=== PATIENT | male | born 1965 | race Caucasian/White ===

== ENCOUNTER 2024-11-13 08:02 | Day surgery (SDC) | payer MEDICARE, MEDICAID, SELFPAY ==
--- OUTSIDE RECORDS SUMMARY | 2024-08-03 07:20 | XMS_ITS ---
Author Organization [facility] Address [address] [address] [place] [phone] Care Team Providers Care Fraud Prevention Analyst Name Role Phone Day ALLAN, Del Primary Care Provider Elkin Love Jr Unavailable Elkin Zarate Unavailable Unavailable REASON FOR VISIT Patient presents today for dyspepsia Encounters Encounter Location Date Provider Diagnosis [facility] [address] [address] [place] [phone] 08/03/2024 Elkin Zarate Jr Plan Of Treatment Next Appt Details Provider Name:Elkin hewitt Jr, 11/13/2024 10:00:00 AM, [address] [place] [address], [phone], Progress Notes * ALBINO HUERTAOB:1965 ( 59 yo M)Acc No.[id number]:08/03/2024 Progress Notes Patient: HEATHER ADORNO Provider: Ronald Zarate MD :1965 A ge:59 Y S ex:Male Date:08/03/2024 Address:[address] [place], [place] [phone] Pcp:Del Bernstein MD Subjective: * Chief Complaints: * 1 . Patient presents today for dyspepsia. * Medical History: Objective: * Vitals: Assessment: Plan: * Treatment: * * The named appointment provid er may or may not be the originator of this progress note, and it is not deemed complete until electronically signed by the appointment provider. Sign off status: Pending * Provider: Ronald Zarate MD Date: 0 08/03/2024 Generated for Kenia rivas/Leidy/Charisitting on: 0 11/04/2024 10:51 AM EDT
[2024-10-12 14:01] VITALS: BMI 36.0
--- OUTSIDE RECORDS SUMMARY | 2024-10-14 09:00 | XMS_ITS ---
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 Name Role Phone Day ALLAN, Del Primary Care Provider Elkin Love Jr Unavailable Elkin Zarate Unavailable Unavailable REASON FOR VISIT screening Encounters Encounter Location Date Provider Diagnosis [facility] Out[facility] [address] [place] [phone] 10/14/2024 Elkin Zarate Jr Plan Of Treatment Next Appt Details Provider Name:Elkin hewitt Jr, 11/13/2024 10:00:00 AM, [address] [place] [address], [phone], Progress Notes * ALBINO HUERTAOB:1965 ( 59 yo M)Acc No.[id number]:10/14/2024 COLON WITH MAC Patient: HEATHER ADORNO Provider: Ronald Zarate MD :1965 A ge:59 Y S ex:Male Date:10/14/2024 Address:[address] [place], [place] [phone] Pcp:Del Bernstein MD Subjective: * Chief Complaints: * 1 . Screening. * Medical History: Objective: * Vitals: Assessment: Plan: * Treatment: * * The named appointment provid er may or may not be the originator of this progress note, and it is not deemed complete until electronically signed by the appointment provider. Sign off status: Pending * Provider: Ronald Zarate MD Date: 0 10/14/2024 Generated for Kenia rivas/Leidy/Charisitting on: 0 11/04/2024 10:51 AM EDT
--- OUTSIDE RECORDS SUMMARY | 2024-11-04 10:52 | XMS_ITS | Clinical Summary ---
Author Organization [facility] Address [address] [place] [id number] Phone Care Team Providers Care Event Marketing Coordinator Name Role Phone Del Bernstein MD Primary Care Provider [phone] Rojas López MD Unavailable [phone] Allergies Active Allergy Reactions Criticality Noted Date Comments Metformin Diarrhea 07/30/2022 Morphine Itching Low 08/04/2015 Sulfa (Sulfonamide Antibiotics) Hives High 07/19 Medications aspirin 81 MG EC tablet Take 81 mg by mouth daily. Active MULTIVITAMIN ORAL Take by mouth. Active simethicone 125 mg CapIndications:A bdominal distention Take 1 capsule (125 mg total) by mouth 3 (three) times a day. 90 capsule 1 06/24/19 25 Active polyethylene glycol (MIRALAX) 17 gram/dose powderIndication s:Drug-induced constipation Take 10 g by mouth daily. 510 g 11 06/24/19 25 Active OZEMPIC 1 mg/dose (4 mg/3 mL) subcutaneous injection penIndications:T ype 2 diabetes mellitus without complication, without long-term current use of insulin INJECT 1 MG UNDER THE SKIN EVERY 7 DAYS 3 mL 3 08/04/19 25 Active JARDIANCE 25 mg tabletIndication s:Type 2 diabetes mellitus without complication, without long-term current use of insulin TAKE 1 TABLET(25 MG) BY MOUTH DAILY 30 tablet 11 09/03/19 25 Active oxyCODONE HCl 10 mg TabIndications:F franci back surgical syndrome Take 1 tablet (10 mg total) by mouth every 4 (four) hours as needed (max 5 a day). Partial fill ok m19.012 140 tablet 10/24/19 25 025 Active lisinopril (PRINIVIL,ZESTRI L) 10 MG tabletIndication s:Benign essential hypertension TAKE 1 TABLET(10 MG) BY MOUTH EVERY MORNING 90 tablet 3 11/03/19 25 Active lisinopril (PRINIVIL,ZESTRI L) 10 MG tabletIndication s:Benign essential hypertension Take 1 tablet (10 mg total) by mouth every morning. 90 tablet 3 12/23/19 24 025 Discontinued oxyCODONE HCl 10 mg TabIndications:F franci back surgical syndrome Take 1 tablet (10 mg total) by mouth every 4 (four) hours as needed (max 5 a day). Partial fill ok m19.012 140 tablet 09/26/19 25 025 Discontinued(Re order) Active Problems Problem Noted Date Diagnosed Date Right lower quadrant abdominal pain 10/31/2022 Assessment & Plan (10/31/2022 11:01 AM EDT): With multiple surgeries concern for development of abdominal hernia right lower quadrant, patient referred back to Dr. Allen who had performed previous hernia surgery. This will be over at [facility]. Routine general medical exam ination at a health care facility 07/30/2022 Assessment & Plan (03/26/2024 5:30 PM EST): Exam is difficult to say whether he is having right jaw pain secondary to a tooth abscess so we will obtain a CRP and if it is elevated I will start him on an antibiotic that he can tolerate. Otherwise we will follow-up on his diabetes and adjust the Ozempic if need be. Chronic pain management will obtain urine tox screen today continue oxycodone and continue to monitor. Blood pressures okay continue antihypertensive as such and will monitor electrolytes kidney function. Regarding the physical we will check a PSA. Assessment & Plan (07/30/2022 6:41 PM EDT): We will obtain a hemoglobin A1c regarding diabetes and check a lipid profile regarding dyslipidemia. I do not believe he is on statin therapy so we will see if that is necessary. His exam remarkable for the scar tissue and reduced range of motion in the shoulders. He is alert and oriented he does not appear overmedicated. 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 Blood pressure is elevated so will reassess in 3 months and consider increasing the lisinopril. If he can check his blood pressure at home that would be a benefit. We will check electrolytes kidney function PSA as part of the lab work to be done. Pain in joint of right shoulder 03/26/2022 Full thickness tear of right subscapularis tendo n 07/26/2021 Assessment & Plan (05/28/2022 2:36 PM EDT): This is a preop assessment for right revision reverse shoulder replacement. It is being performed in [place] on 31 May. [facility]. One of the concerns was an A1c of 10% back in March but the patient in the meantime was able to get the Trulicity approved and has been taking it regularly with blood sugars within or close to normal range. That would have been the only concern, his blood pressure was well within target range today and exam was unremarkable. In regards to pain management he can continue perioperatively with the oxycodone that he is using for his lower back pain chronic 10 mg 5 times a day though if his pain management is taken over by surgery and increased he will let us know. As such we could potentially raise his 10 mg dose to 15 if he needs it and I have made that offer to him. So with the stipulation about the pain management he is cleared to proceed to the surgery without any further cardiovascular testing. Assessment & Plan (03/26/2022 11:04 AM EST): This revision surgery right shoulder for which the patient is being assessed today for cardiovascular risk mitigation to the surgery, risk factors mitigated significantly, no need for further cardiovascular work-up prior to the surgery, patient can proceed to the surgery and may come off of the aspirin 7 days in advance to the surgery. Erectile dysfunction 01/23/2021 Assessment & Plan (04/25/2021 10:52 AM EST): Patient requesting 8 tablets/month, granted, patient okay for sexual intercourse. Continue aspirin for cardiovascular protection. 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 He is willing to give Viagra a chance and I told him that the Viagra is safe as long as you do not use it together with nitroglycerin which he does not have in his medicine cabinet nor on his med list. Take 1 hour before intended intercourse on an empty stomach. At risk for elopement from healthcare setting Assessment & Plan (12/16/2019 5:41 PM EDT): Patient left the examining room before we could examine him and performed the preop physical, he will reschedule for a new date. Enteritis 12/01/2019 Assessment & Plan (12/01/2019 10:32 AM EDT): Enteritis most likely through a rotavirus or adenovirus also making sore throat. Possible Covid though so we will obtain COVID-19 PCR testing. No need for ER, urgent care or RERE. A note to stay out of work given the contagious disease was written out to keep him until Saturday. No fat in food, no dairy over the next 5 days and bland foods such as bread, chicken noodle soup, Gatorade to help restore electrolytes and ease stomach. No antibiotics indicated. Opioid use 07/24/2019 Preop cardiovascular exam 03/30/2019 Assessment & Plan (07/26/2021 1:20 PM EDT): This patient is coming in for a preop evaluation regarding upcoming reverse shoulder procedure that is also a Workmen's Comp. case. It deals with an injury that happened during work hours specifically a fall. 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 We see that the patient's blood sugars are much better control under the Trulicity and from that standpoint he can proceed to the surgery. 's from the standpoint of hypertension and cardiovascular risk, he may come off of the aspirin 7 days prior to the procedure and may restart the aspirin shortly after the surgical procedure. His diabetes and hypertension are very well managed, also his diet has improved markedly. He remains a non-smoker, from this angle he can proceed also to the shoulder surgery scheduled. EKG came back with a normal sinus rhythm, in the past he has had ectopy so this was no new finding. We will obtain labs including a Chem-7 and a CBC for preop labs. I will see the patient back in 3 months with prior labs. No further cardiovascular testing necessary. Patient cleared for right-sided shoulder surgery. Assessment & Plan (07/27/2020 11:22 AM EDT): This visit was to determine whether the patient can proceed to the planned elective surgery to repair the subscapularis tendon August 29 over at [facility]. The patient is of moderate risk based on his hemoglobin A1c, obesity. He is compliant with medication but his diet could be improved. We feel that he can proceed to the surgery without any further cardiovascular testing. We note that the EKG came back within normal limits, we will do preop labs including an INR, Chem-7 and CBC. For better surgical healing and reduction in perioperative infections, the patient is advised to check his blood sugar 1 week before the surgery and 1 week after and tone down the amount of carbohydrates he is eating. Afterwards I am seeing the patient for a physical in September and we will repeat labs prior to that visit. Perioperative management of pain will be conducted through the surgeon and then we will take over when the surgeon feels that the pain management for the surgery is concluded. We note that the patient was recently started on Amaryl to bring his A1c down below 8% and he is tolerating that medication well without any low blood sugars. He is reminded to come off of all antidiabetics the day of surgery, not to take them, as he will be fasting then. So it is my determination that this patient is cleared for the upcoming shoulder surgery in conjunction with the above stated considerations. Assessment & Plan (06/27/2020 2:18 PM EDT): Exam positive for a few calluses on his lower extremities specifically his feet and otherwise obesity as before with central obesity noted and lot of pain with the shoulders with reduced range of motion. Other than that unremarkable exam. Blood pressure was good, we will see what the diabetes is doing and will make adjustments to antidiabetics especially since he will be having surgery coming up shortly for the subscapularis tendon that needs to be repaired right-sided, see above. I will also set up labs for 3 months from now. Assessment & Plan (03/30/2019 5:31 PM EST): Advised on the physical exam exercises mentioned above, dietary changes to get A1c improved. We will set up patient for physical therapy with shoulder pain. Colonoscopy is up-to-date, will perform diabetic foot exam at next visit in 3 months. Follow-up in 3 months. Mixed hyperlipidemia 03/30/2019 Assessment & Plan (06/06/2023 5:14 PM EDT): It is now time again to recheck lipids, check lipid profile and see if statin therapy is needed. Specially with history of diabetes there is a low threshold to start statin therapy. Assessment & Plan (12/18/2019 1:54 PM EDT): He has a strong HDL and LDL is okay though perhaps in the future we should consider a low-dose statin to get the LDL below 100. Assessment & Plan (07/28/2019 7:57 PM EDT): We should reassess the patient's lipid profile and ascertain if a statin therapy is necessary. Would like the LDL at least below 100 preferably below 75. Assessment & Plan (03/30/2019 5:30 PM EST): Check lipid profile today, if LDL triglycerides and HDL pathologic consider starting statin therapy. Intermittent chest pain 01/05/2019 Assessment & Plan (01/05/2019 3:36 PM EST): The patient does have risk factors for coronary artery disease including type 2 diabetes, hypertension and moderate cholesterol. He does have a little bit of ambiguous chest pain that is recurrent that he was complaining of today. Risk factors for CAD with recurrent chest pain should warrant at least a stress test. We will do an outpatient stress test at as he lives in [place] and based on results referral to cardiology. Type 2 diabetes mellitus wit hout complication, without long-term current use of insulin 09/23/2018 Assessment & Plan (06/23/2024 6:20 PM EDT): In order to allow the Ozempic to work will write some simethicone 3 times daily to reduce buildup of gas. Then also for constipation the polyethylene glycol will be prescribed 10 g daily. That will help keep from constipation. Assessment & Plan (12/10/2023 10:17 AM EDT): Check hemoglobin A1c and see if an adjustment on the Ozempic is needed. Assessment & Plan (09/09/2023 2:59 PM EDT): Keep ozempic at 1 mg per week and obtain microalb in urine now and hemogloboin A1c in three months, continue at 1 mg Assessment & Plan (06/06/2023 5:16 PM EDT): The patient will remain on the Trulicity 0.75 mg/week. Lets obtain a hemoglobin A1c and try to increase the Trulicity back up to 3 mg weekly based on the lab work particularly the hemoglobin A1c. Assessment & Plan (01/28/2023 1:03 PM EST): Our goal is to get him down into the 7% bracket and maintain for a year. Ideally down into the 6% range. Will continue Jardiance and Trulicity for now, blood pressure well-controlled with the antihypertensive as written. Patient will continue to monitor his diet for starches and sugar. Assessment & Plan (10/31/2022 10:59 AM EDT): Patient is now back on Jardiance and Trulicity so we will see if he comes back down in the 6% range as he was successfully on these meds before. The Trulicity had been in short supply for a while. He denies any polyuria or polydipsia so A1c could very well come back in target range. Assessment & Plan (03/26/2022 11:03 AM EST): We are expecting the A1c to be a little bit elevated even severely elevated but as long as the blood sugar today on the Chem-7 is below 250 would not hold back from surgery but might advise to have the patient log blood sugars more frequently. Reason that the A1c would be more elevated is that he was off of the Trulicity and Jardiance since being let go from his job in November. He is now on [facility] and back on the Trulicity and Jardiance. Assessment & Plan (04/25/2021 10:51 AM EST): Over the past couple of years despite the Trulicity still A1c persisting in 8% range. 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 Therefore I would hold off on any changes. Could consider adding on some Actos but would hold off to see the results. Follow-up in 3 months. Assessment & Plan (01/23/2021 11:29 AM EST): It is too early to tell whether the diabetes will be controlled by the add-on of Trulicity and so we are in the face of trying to ramp up the Trulicity. Initially 0.75 mg cause nausea but is tolerating well now. Will call in another month's prescription at 0.75 but actually he will take 2 injections at once so it will be 1.5 mg weekly and then if no nausea we can write a new prescription at that dosing. Eventually we could go up to 3 mg or 4.5 mg which is the maximal dose but we have several months/half year to figure it out. I would like to see him back in 3 months at which time we might do a urine tox screen for example, we will obtain labs in advance prior to the visit. He will continue with the other medicines. We would like him to check his blood sugar if he felt he was hypoglycemic. That would be important to know. Assessment & Plan (10/25/2020 9:47 AM EDT): A1c's have been in the 8% range on Jardiance full-strength and Amaryl 1 mg as well as Metformin. We would like to see if we can get his A1c down to below 8% so I am considering adding on something like Trulicity or Ozempic to his regimen. I would probably do so in January the give him another 3 months to work on his diet. Any anyhow we will set him up today for lab. Check A1c. Also check microalbumin as part of the protocol. Another part of the protocol would be checking lipids that had not been done this year patient is not on a statin and with the Jardiance might really need to be taking something. So based on the lipid profile consider adding on a statin and will have a discussion with him first if that is the case. Assessment & Plan (06/27/2020 2:11 PM EDT): We will obtain a hemoglobin A1c now and in 3 months. Because his A1c was 8% range she really should have been seen 3 months ago. So we will just assume that the A1c is in the 8% range but even if it is 7% he should keep that appointment as we will follow him a little bit more closely as discussed him. Counseled the patient on diabetic diet, elements of diabetic diet, we talked about Metamucil. Sugar-free Metamucil. Assessment & Plan (12/18/2019 1:55 PM EDT): Continue Metformin and Jardiance, if the A1c is still around 8% we will add on short-term sulfonylurea to be used perioperatively but of course not on the day of surgery. On the day of surgery the patient will be off of the Jardiance, Metformin, oxycodone and lisinopril. Assessment & Plan (12/01/2019 10:33 AM EDT): The patient has having a little bit of unsettled stomach with the Jardiance and its been about 5 months. We will continue for now, consider going back to Invokana with prior authorization. Patient tolerated the Invokana much better. Assessment & Plan (07/28/2019 8:01 PM EDT): Obtain hemoglobin A1c, continue invoke a met and see if further management necessary of diabetes. Currently no overt signs of hypoglycemia. Assessment & Plan (03/30/2019 5:27 PM EST): His A1c back in December was 7.7% and so we should recheck it today and hopefully we are below 7%. Encouraged the patient to a diet low in carbohydrates specifically sugar and starch and increased fiber with vegetables specifically and then to a lesser extent fruits. Avoidance of highly processed starches such as Romanian fries or spaghetti. Minimal amounts. Daily exercise recommended. 30 minutes of moderate maintenance. Assessment & Plan (01/05/2019 3:11 PM EST): Reassess diabetes today check A1c if A1c is elevated consider increasing the Invokana with metformin. Patient counseled to keep watching blood sugars 2-3 times per week 2 hours postprandial biggest meal the day. Counseled patient on diabetic diet and exercise. Assessment & Plan (09/23/2018 5:31 PM EDT): Diabetes was at the other clinic and found to be stable, no need to switch current management, check A1c in 3 months, diabetic diet reinforced with patient. Benign essential hypertension 09/23/2018 Assessment & Plan (06/23/2024 6:19 PM EDT): Blood pressure well-controlled continue the antihypertensives as such. Assessment & Plan (12/10/2023 10:17 AM EDT): Hypertension well controlled with current listed antihypertensives. Denies side effects No change to dosing. Low Sodium diet reinforced. Continue to monitor condition. Assessment & Plan (09/09/2023 2:57 PM EDT): Hypertension well controlled with current listed antihypertensives. Denies side effects No change to dosing. Low Sodium diet reinforced. Continue to monitor condition. Assessment & Plan (06/06/2023 5:13 PM EDT): Hypertension well controlled with current listed antihypertensives. Denies side effects No change to dosing. Low Sodium diet reinforced. Continue to monitor condition. Assessment & Plan (10/31/2022 11:00 AM EDT): Blood pressure in target range continue low-dose antihypertensive as is. Jardiance is also helping out with blood pressure. Low-sodium diet reinforced. Assessment & Plan (03/26/2022 11:02 AM EST): Hypertension well controlled with current listed antihypertensives. Denies side effects No change to dosing. Low Sodium diet reinforced. Continue to monitor condition. Assessment & Plan (04/25/2021 10:49 AM EST): Hypertension well controlled with current listed antihypertensives. Denies side effects No change to dosing. Low Sodium diet reinforced. Continue to monitor condition. Assess Chem-7. Assessment & Plan (01/23/2021 11:27 AM EST): Hypertension well controlled with current listed antihypertensives. Denies side effects No change to dosing. Low Sodium diet reinforced. Continue to monitor condition. Assessment & Plan (10/25/2020 9:45 AM EDT): Blood pressure well controlled with the low-dose lisinopril. Recheck electrolytes kidney function. Low-sodium diet reinforced, we would like the patient to go back on aspirin 81 mg for cardiovascular protection. Patient confirmed and we can reconfirm in January make sure that he is taking. Assessment & Plan (06/27/2020 2:10 PM EDT): Hypertension well controlled with current listed antihypertensives. Denies side effects No change to dosing. Low Sodium diet reinforced. Continue to monitor condition. Assessment & Plan (12/18/2019 1:55 PM EDT): Hypertension well controlled with current listed antihypertensives. Denies side effects No change to dosing. Low Sodium diet reinforced. Continue to monitor condition. Assessment & Plan (12/01/2019 10:33 AM EDT): For now continue the lisinopril and we will reassess on physical exam sometime in December. Assessment & Plan (03/30/2019 5:26 PM EST): Blood pressures were good back in December and September so we will continue to follow blood pressure and only modify antihypertensive if persisting blood pressure. We encouraged him to check at home. Continue lisinopril at 10 mg and we do note that the Invokana doubles up to help with blood pressure maintenance. Check electrolytes kidney function in the context of this physical exam and benign essential hypertension. Assessment & Plan (01/05/2019 3:08 PM EST): Hypertension well controlled with current listed antihypertensives. Denies side effects No change to dosing. Low Sodium diet reinforced. Continue to monitor condition. Obtain electrolytes kidney function with particular attention to potassium. Assessment & Plan (09/23/2018 5:32 PM EDT): Blood pressure well controlled, lisinopril more about controlling protein in urine, continue to monitor blood pressure, low-sodium diet reinforced albumin in 3 to 6 months. Mid back pain 09/23/2018 Assessment & Plan (12/10/2023 10:19 AM EDT): Mid back pain just right of T5-T6, obtain for the first step x-ray of the thoracic spine. We are looking for old compression fractures, dislocations. Assessment & Plan (01/23/2021 11:31 AM EST): We can continue the current management of opioids for the patient's back pain and shoulder pain. Urine tox screens as previously arranged, random application. 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 We can continue the oxycodone but I admonished the patient that I need to see him every 3 months and that we need to do urine tox screen which we will do today. He had no problems with the rules so we will follow-up with him in 3 months here. Assessment & Plan (07/27/2020 11:17 AM EDT): The patient is on the oxycodone for the failed back syndrome and there is a question of pain management perioperatively. I told the patient we would manage the patient preoperatively but after the surgery for a time that the surgeon felt was adequate the orthopedic surgeon will take over the pain management for perioperative shoulder pain and then will take over when the time is right according to the surgeon. Patient agreement with plan. Assessment & Plan (09/23/2018 5:34 PM EDT): Back surgery with Dr. Guillaume 2009, moderate success with right-sided sciatica, pain still persisting along with chronic shoulder pain secondary to degenerative joint disease. Over contract with the patient, contract signed. Right sided sciatica 09/23/2018 Assessment & Plan (06/06/2023 5:15 PM EDT): Right now it is more left iliopsoas versus SI joint versus lumbosacral pathology that is causing the pain in his left posterior hip. Will give this a couple more weeks before approaching it with some more imaging. If the SI joint is involved we can refer the patient to physiatry. Assessment & Plan (10/31/2022 11:00 AM EDT): Right-sided sciatica right shoulder and knee and and ankle pain for which the patient continues on the oxycodone, will continue to work with the patient, urine tox screen ordered, hold off anti-inflammatories. Assessment & Plan (06/27/2020 2:13 PM EDT): We will continue his chronic pain management up until his upcoming surgery. He has a right sub-scapular tendon repair planned. But it has to go through Workmen's Comp. approval. I will be Dr. Lane of [facility] who had performed the previous shoulder. He is okay to use the opiates that we prescribed up until the surgery then perioperatively the orthopedist will take over until its okay to return to the regular regimen that he is on. We need to follow him every 3 months for controlled substances so I will see him back in September irrespective of any preop consult that is done for this upcoming surgery. Assessment & Plan (07/28/2019 7:57 PM EDT): This patient was previously treated by Dr. Petty, [facility], for failed back syndrome with right-sided sciatica. He continues to have a lot of right posterior hip pain that appears to be associated with his degenerative disc disease. We are treating the patient with oxycodone for his pain 10 mg 5 times or perhaps 6 times a day. 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 Degenerative disc disease with acute on chronic pain, referral back to Dr. Guillaume of [facility] to investigate exacerbation of right-sided sciatica. Continue oxycodone at current dosing. Assessment & Plan (01/05/2019 3:31 PM EST): Right-sided sciatica has not changed in character, the pain is held in check with the oxycodone currently at 20 mg to 1/2 tablets daily to make 50 mg daily. Patient would like to go back to the 10 mg tablets as this was not neither his idea nor mine to switch to 20 mg. When the medicine is due he will call it in and we will call in 5 tablets/day 150, Degenerative joint disease 09/16/2018 Assessment & Plan (06/23/2024 6:21 PM EDT): Degenerative joint disease and degenerative disc disease lumbar spine, particularly the shoulders and the lumbar spine with a lot of pain, patient requiring oxycodone 10 mg every 4 hours, will continue to prescribe, pain contract signed. Assessment & Plan (12/10/2023 10:18 AM EDT): Degenerative joint disease and lower back pain managing also with the oxycodone for which we will do a urine tox screen today. Will continue the oxycodone, [facility]. Assessment & Plan (01/28/2023 1:04 PM EST): Regarding chronic pain syndrome will continue to monitor urine tox screens twice a year and we will maintain on the 10 mg of oxycodone. Assessment & Plan (03/30/2019 5:30 PM EST): Referral to physical therapy for exercises, continue chronic pain management with opioids as such. Degenerative joint disease of left shoulder 08/20 Assessment & Plan (09/09/2023 3:00 PM EDT): Ongoing shoulder pain with back pain as well, continue current management. Assessment & Plan (06/06/2023 5:14 PM EDT): With either shoulder I counseled the patient to set up an appointment with [facility] before Dr. López might retire. Assessment & Plan (04/25/2021 10:52 AM EST): Lower backThe patient on pain medicine for back and shoulder pain. Continue current management with the oxycodone, obtain urine tox screen and follow-up in 3 months. Assessment & Plan (12/18/2019 1:53 PM EDT): The patient presents for preop risk assessment for a moderate risk procedure. He himself has a stable exam with normal sinus rhythm EKG no ischemic ectopy and no prior history of coronary artery disease. We think he is a good candidate for the upcoming surgery and therefore we recommend that the surgery be conducted without any prior cardiovascular testing. In July his hemoglobin A1c was in the 8% range but he has lost a little bit of weight and has worked on his diet habits. He has been compliant with the medications. I told the patient is healing process would be better if his blood sugars are under good control. As long as his blood sugars are not on average above 250 though he should be okay for the surgery. We will obtain a hemoglobin A1c along with a CBC Chem-7 AST ALT and urinalysis as well as a PT/INR for the upcoming surgery as prerequisites. Patient currently not taking an aspirin a day and does not need to do so. We will fax those results to the surgeon. I wrote a letter the patient's employer keeping him out 8 weeks after the surgery well into February. He can use this time for physical therapy and recovery. In regards to the pain management we were writing the oxycodone for his back and shoulder pain, with the surgery he will have perioperative pain management through the orthopedist however we would be inclined to take over pain management, once the surgeon felt that the postsurgical pain was under good control. We would like that communicated however to the office and also the patient has promised not to take the oxycodone that I am prescribing at the same time as the pain management from the surgeon. Class 3 severe obesity due t o excess calories with serious comorbidity and body mass index (BMI) of 40.0 to 44.9 in adult Assessment & Plan (06/23/2024 6:19 PM EDT): Once at higher doses of the Ozempic together with Jardiance we can perhaps get the A1c below 8% perhaps even below 7%. Then we can also see improve weight loss. Assessment & Plan (12/10/2023 10:18 AM EDT): About 6 pounds of weight gain within the last 4 months, consider increasing Ozempic for both diabetes and weight gain. Assessment & Plan (09/09/2023 2:57 PM EDT): counseled the pt on eating a low calorie diet to reduce excess weight. We talked about calorie restriction, weight watchers and exercise as possible to help move weight in the right direction. Assessment & Plan (04/25/2021 10:50 AM EST): Trulicity perhaps enabling weight loss resulting in the 10 pound weight loss, check A1c. Continue Trulicity at current dosing. Assessment & Plan (06/27/2020 2:12 PM EDT): counseled the pt on eating a low calorie diet to reduce excess weight. We talked about calorie restriction, weight watchers and exercise as possible to help move weight in the right direction. Assessment & Plan (12/18/2019 1:54 PM EDT): counseled the pt on eating a low calorie diet to reduce excess weight. We talked about calorie restriction, weight watchers and exercise as possible to help move weight in the right direction. Assessment & Plan (03/30/2019 5:29 PM EST): counseled the pt on eating a low calorie diet to reduce excess weight. We talked about calorie restriction, weight watchers and exercise as possible to help move weight in the right direction. Assessment & Plan (09/23/2018 5:33 PM EDT): Discussion about compression of the discs secondary to weight, disc decompression with weight loss feasible, counseled patient on portion control. Encounters Date Type Department Care Team Description 10/31/2024 Refill [facility] Internal [facility] [address] [facility] [place] [place] [address] Del Bernstein MD Medication Refill 10/16/2024 Refill [facility] [address] [facility] [place] [address] Del Bernstein MD Medication Refill (CSRP) 09/18/2024 Refill [facility] [address] [place] [address] Del Bernstein MD Medication Refill (CSRP Oxycodone ) 09/01/2024 Refill [facility] [address] [facility] [place] [address] Del Bernstein MD Medication Refill 08/20/2024 Refill [facility] [address] [place] [address] Del Bernstein MD Medication Refill (CSRP) 08/05/2024 Telephone [facility] [address] [facility] [place] [address] Katelynn Avelar, DANIEL Results from Last 3 Months Immunizations Immunization Administration Dates Next Due Influenza Quadrivalent Preservative Free IM 11/20 Pneumococcal polysaccharide PPSV23 01/05/2019 Tdap 01/17/2018 Family History Medical History Relation Comments COPD Mother Diabetes Mother Emphysema Mother Lung cancer Unspecified Cervical cancer Neg Hx Relation Status Comments Father Mother Unspecified Social History Tobacco Use Types Packs/Day Years Used Date Smoking Tobacco: Never Passive Smoke Exposure: Current Smokeless Tobacco: Current Chew Tobacco Cessation:Ready to Q uit: Not Asked; Counseling Given: Not Answered Alcohol Use Standard Drinks/Week Comments Not Currently 0 (1 standard drink = 0.6 oz pur e alcohol) rarely Child or Family Care Answer Date Record ed Do you have problems with on e of the following making it difficult for you to work, study, or receive health care? I choose not to answer 03/26/2024 Education Answer Date Recorded Are you interested in help w ith more adult education (for example, completing high school, GED, job training, learning the [place]ij[place] language, technical skills, or developing parenting skills)? I choose not to answer 03/26/2024 Are you concerned about learning? Not on file 03/26/2024 No 03/26/2024 Yes 03/26/2024 Food Answer Date Recorded Within the past 6 months we worried whether our food would run out before we got money to buy more. I choose not to answer 03/26/2024 Within the past 6 months the food we bought just didn't last and we didn't have enough money to get more. I choose not to answer 03/26/2024 Residential Stability Answer Date Recor ded What is your housing situation today? I choose n ot to answer 03/26/2024 How many times have you move d in the past 12 months? Zero (I did not move) 03/26/2024 Paying for Meds Answer Date Recorded Do you have trouble paying for medicines? I tarah se not to answer 03/26/2024 Paying Utility Bills Answer Date Record ed Do you have trouble paying y our heating or electricity bill? I choose not to answer 03/26/2024 Transportation Answer Date Recorded Has the lack of transportati on kept you from medical appointments or from getting medications? I choose not to answer 03/26/2024 Unemployment Answer Date Recorded Are you currently unemployed or working on a part-time or temporary basis, and looking for work? I choose not to answer 03/26/2022 Digital Access Answer Date Recorded No 03/26/2024 No 03/26/2024 Do you have reliable internet access at home? I choose not to answer 03/26/2024 Do you have a device (e.g., phone, tablet, computer) with a working camera? I choose not to answer 03/26/2024 SNAP & WIC Answer Date Recorded Do you receive benefits from SNAP (the Supplemental Nutrition Assistance Program) or the Food Stamp Program? No 07/30/2022 SNAP is a free program that can help you and your family get access to healthy foods, nutrition classes, utility discounts, and more. Would you be interested in learning more? No 07/30/2022 Can we help you enroll in SNAP? Not on file 07/30/2022 Benefits received from WIC? Not on file 07/19 WIC is a free program, interested in learning mo re? Not on file 07/30/2022 Can we help you enroll in WIC? Not on file 0 07/30/2022 Intimate Partner Violence Answer Date R ecorded Denied Basic Needs Not on file 03/26/2024 In the past 12 months have y ou been in a relationship with a person who hurts, threatens, or tries to control you? Deferred 03/26/2024 Worried food would run out Not on file 03/26 In the past 12 months have y ou been in a relationship with a person who hurts, threatens, or tries to control you? Deferred 03/26/2024 Sex and Gender Information Value Date Recorded Sex Assigned at Male 07/26/2021 10:19 AM EDT Legal Sex Male 8:51 AM EDT Gender Identity Male 07/26/2021 10:19 AM EDT Sexual Orientation Straight 07/26/2021 10 :19 AM EDT Last Filed Vital Signs Vital Sign Reading Time Taken Comments Blood Pressure 116/64 06/23/2024 11:18 AM EDT Pulse 93 06/23/2024 11:18 AM EDT Temperature 36.3 C (97.3 F) 06/23/2024 11:18 AM EDT Respiratory Rate 18 06/23/2024 11:1 8 AM EDT Oxygen Saturation 94% 06/23/2024 11: 18 AM EDT Inhaled Oxygen Concentration - - Weight 123.9 kg (273 lb 3.2 oz) 025 11:18 AM EDT Height 172.7 cm (5' 7.99 ) 06/23/2024 1 1:18 AM EDT Body Mass Index 41.55 06/23/2024 11:18 AM EDT Plan of Treatment Upcoming Encounters Date Type Department Care Team (Late st Contact Info) Description 11/10/2024 10:45 AM EDT Office Visit [facility] Internal Medicine [address] [place] [address] Del Bernstein MD [address] [place] [address] [email or web address] Health Maintenance Due Date Last Done Comments COLOGUARD 2010 COLONOSCOPY 2010 COLORECTAL CANCER SCREENING 2010 FIT TEST 2010 FOBT 2010 SIGMOIDOSCOPY 2010 VIRTUAL COLONOSCOPY 2010 ZOSTER VACCINES (1 of 2) 2015 PNEUMOCOCCAL VACCINES (50+ years) (2 of 2 - PCV) 01/06/2020 01/05/2019 DIABETIC EYE EXAM 02/20/2020 02/19/2019 INFLUENZA VACCINE (#1) 2024 12/18/2019 COVID-19 VACCINE (1 - season) 2024 HEMOGLOBIN A1C 10/24/2024 07/24/2024, 03/22, 12/10/2023, Additional history exists BLOOD PRESSURE 12/24/2024 06/23/2024 DEPRESSION SCREENING 03/26/2025 03/26/2024, 09/09/19 24 CREATININE LEVEL 04/09/2025 04/09/2024, 11/2023, 10/31/2022, Additional history exists POTASSIUM LEVEL 04/09/2025 04/09/2024, 06/18, 10/31/2022, Additional history exists LIPID PANEL 07/24/2025 07/24/2024, 06/18, 07/30/2022, Additional history exists Adult Td,Tdap Booster 01/18/2028 01/17/2018 HEPATITIS C SCREENING Completed 01/27/2019 HIV ONE-TIME SCREENING (18-65 YEARS) Completed 01/27/2019 SMOKING STATUS SCREENING (Once After 26 Yrs) Completed 06/23/2024 HEPATITIS A VACCINES Aged Out No long er eligible based on patient's age to complete this topic HIB VACCINES Aged Out No longer eligi ble based on patient's age to complete this topic MENINGOCOCCAL VACCINES (ACWY) Aged Out No longer eligible based on patient's age to complete this topic MENINGOCOCCAL VACCINES (B) Aged Out N o longer eligible based on patient's age to complete this topic Medical Devices Not on file Procedures Procedure Name Priority Date/Time Associated Diagnosis Comments HEMOGLOBIN A1C Routine 07/24/2024 12:00 PM EDT Type 2 diabetes mellitus without complication, without long-term current use of insulin LIPID PANEL Routine 07/24/2024 12:00 PM EDT Type 2 diabetes mellitus without complication, without long-term current use of insulin BASIC METABOLIC PANEL Routine 04/09/2024 3:56 PM EST Benign essential hypertension HM DIABETES EYE EXAM FOR RESULT ENTRY ONLY Routine 02/19/2019 OUTSIDE HIV Routine 01/27/2019 OUTSIDE HEPATITIS C VIRUS SCREENING Routine 01/27/2019 from Last 3 Months or Most Recently Relevant to Health Maintenance Results * (ABNORMAL) Hemoglobin A1c (07/24/2024 12:00 PM EDT) HEMOGLOBIN A1C 9.9(H) 4.3 - 5.8 % [facility] Blood 07/24/2024 12:0 0 PM EDT 07/24/2024 12:04 PM EDT us Del Bernstein MD LAB BLOOD ORDERABLES Final Resul t [facility] [address] [place] [address] * (ABNORMAL) Lipid panel (07/24/2024 12:00 PM EDT) HDL 47 mg/dL [facility] Comment: Interpretation <40 mg/dL: Low HDL cholesterol (major risk factor for CHD) Greater than or equal to 60 mg/dL: High HDL cholesterol ( negative risk factor for CHD) HDL - cholesterol is affected by a number of factors, e.g. smoking, excerise, hormones, sex and age. CHOLESTEROL 199 0 - 240 mg/dL [facility] TRIGLYCERIDES 105 30 - 160 mg/dL [facility] LDL 131(H) 50 - 129 mg/dL [facility] Comment: LDL levels in terms of risk for coronary heart disease: <100 mg/dL: Optimal 100-129 mg/dL: Near or above optimal 130-159 mg/dL: Borderline high 160-189 mg/dL: High >190 mg/dL: Very High CARDIAC RISK RATIO 4.2 3.4 - 5.0 C [facility] Blood 07/24/2024 12:0 0 PM EDT 07/24/2024 12:04 PM EDT us Del Bernstein MD LAB BLOOD ORDERABLES Final Resul t [facility] [address] [place] [address] * (ABNORMAL) Basic metabolic panel (04/09/2024 3:56 PM EST) SODIUM 135 133 - 146 mmol/L [facility] CHLORIDE 98 96 - 108 mmol/L [facility] POTASSIUM 4.4 3.3 - 5.1 mmol/L [facility] CO2 27 21 - 35 mmol/L [facility] BUN 15 6 - 19 mg/dL [facility] CREATININE 1.00 0.5 - 1.5 mg/dL [facility] GLUCOSE 237(H) 70 - 99 mg/dL [facility] CALCIUM 9.2 8.4 - 10.3 mg/dL [facility] EGFR 87 >59 mL/min/1.7 3m2 [facility] Comment:Estimated glomerular filtration rate calculated using the CKD-EPI refit equation. ANION GAP 14 10 - 20 mmol/L [facility] Blood 04/09/2024 3:56 PM EST 04/09/2024 3:59 PM EST us Del Bernstein MD LAB BLOOD ORDERABLES Final Resul t [address] [address] * DIABETES EYE EXAM FOR RESULT ENTRY ONLY (02/19/2019) EYE EXAM .. Historical Provider HEALTH MAINTENANCE Final Result * Outside Hepatitis C Virus Screening (01/27/2019) Hepatitis C Screening - External Neg Historical Provider LAB BLOOD ORDERABLES Nlalely l Result * OUTSIDE HIV TEST (01/27/2019) HIV - External Neg Historical Provider LAB BLOOD ORDERABLES Nallely l Result from Last 3 Months or Most Recently Relevant to Health Maintenance Insurance [facility] MEDICARE PART A & B [place] A & [facility] [place] & [facility] & [place] PART A & B [employer] Care Teams Event Marketing Coordinator Relationship Specialty Start Date End Date Del Bernstein MD [address] [place] [address] [email or web address] PCP - General Internal Medicine 05/17/20 Rojas López MD [address] [place] [id number] Orthopedic Surgery 09/09/23 Additional Source Comments The information contained in this document represents components of the legal health record. It is not the complete legal health record[facility]
--- OUTSIDE RECORDS SUMMARY | 2024-11-04 10:52 | XMS_ITS | Patient Health Record ---
Author Organization [facility] Address [address] [place] [address] Care Team Providers Care Roller Leveler Name Role Phone Day ALLAN, Del Primary Care Provider Unavailalma e Elkin Zarate Jr Unavailable Elkin Zarate Unavailable Unavailable Allergies Allergen (clinical drug ingredient) Drug/Non Drug Allergy documented on EMR Reaction Allergy Type Onset Date Status Substance with sulfonamide structure and antibacterial mechanism of action (substance) Sulfa Antibiotics Unknown Drug Allergy Active Reason For Referral No Information Medications Medication SIG (Take, Route, Frequency, Duration) Notes Start Date End Date Status Aspirin 81 81 MG 2 tablet Orally Once a day Active Jardiance 25 MG 1 tablet Orally Once a day Active oxyCODONE HCl 10 MG 1 tablet as needed O rally every 6 hrs Active Lisinopril 10 MG 1 tablet Orally Once a day Active Ozempic (1 MG/DOSE) 4 MG/3ML as directed Subcutaneous once weekly Active Social History Tobacco Use: Social History Observation Description Date Details (start date - stop date) Current Smoker 09/19/1983 - NA Tobacco Control (Standard) Question Answer Notes Tobacco use: Current smoker When did you start smoking? 09/19/1983 How often do you smoke cigarettes? Every day How many cigarettes a day do you smoke? 6-10 How soon after you wake up do you smoke your fir st cigarette? After 60 minutes Are you interested in quitting? Ready to quit Additional Findings: Tobacco user Chews tobacco AUDIT-C (Standard) Question Answer Notes Did you have a drink contain ing alcohol in the past year? Yes How often did you have a dri nk containing alcohol in the past year? 2 to 4 times a month (2 points) How many drinks did you have on a typical day when you were drinking in the past year? 1 or 2 drinks (0 point) How often did you have six o r more drinks on one occasion in the past year? Never (0 point) Points 2 Interpretation Negative Problems Problem Type SNOMED Code ICD Code Onset Dates Problem Status W/U Status Risk Notes Problem Colon cancer screening (638510149) Colon cancer screening (Z12.11) Active confirmed Problem Abdominal pain (79184366) Abdominal pain (R10.9) Active confirmed Problem Gas (09892229) Gas (R14.3) Active confirmed Problem Diastasis of muscle (572600143) Diastasis of rectus abdominis (M62.08) Active confirmed Vital Signs Heart Rate 60 /min 09/30/2024 Blood pressure diastolic 01 mm Hg 09/30/2024 Height 68.5 in 09/30/2024 Blood pressure systolic 001 mm Hg 09/30/2024 Weight 240 lbs 09/30/2024 BMI 35.96 kg/m2 09/30/2024 Encounters Encounter Location Date Provider Diagnosis [facility] [address] [place] [phone] 09/30/2024 Elkin Zarate Jr Abdominal pain R10.9 ; Gas R14.3 ; Diastasis of rectus abdominis M62.08 and Colon cancer screening Z12.11 [facility] [address] [place] [phone] 08/03/2024 Elkin Zarate Jr [facility] [address] [place] [phone] 10/12/2024 Elkin Zarate Jr Assessments Encounter Date Diagnosis (ICD Code) Assessment Notes Treatment Notes Treatment Clinical Notes Section Notes 09/30/2024 Abdominal pain (ICD-10 - R10.9) We reviewed his medical problems in detail today. We discussed the problems of abdominal pain, gas, and diastases of the rectus muscles. We recommend that he monitor things for the time being regarding the diastases. For his gas, he can use OTC simethicone or other anti-gas agents as needed. We will see him in follow-up for colonoscopy because of his personal history of colon colon polyps and his need for colorectal cancer screening. We discussed risks and benefits of the procedure today. He is advised to stop Ozempic 1 week before the procedure along with aspirin and Jardiance 3 days before the procedure. 09/30/2024 Gas (ICD-10 - R14.3) We reviewed his medical problems in detail today. We discussed the problems of abdominal pain, gas, and diastases of the rectus muscles. We recommend that he monitor things for the time being regarding the diastases. For his gas, he can use OTC simethicone or other anti-gas agents as needed. We will see him in follow-up for colonoscopy because of his personal history of colon colon polyps and his need for colorectal cancer screening. We discussed risks and benefits of the procedure today. He is advised to stop Ozempic 1 week before the procedure along with aspirin and Jardiance 3 days before the procedure. 09/30/2024 Diastasis of rectus abdominis (ICD-10 - M62.08) We reviewed his medical problems in detail today. We discussed the problems of abdominal pain, gas, and diastases of the rectus muscles. We recommend that he monitor things for the time being regarding the diastases. For his gas, he can use OTC simethicone or other anti-gas agents as needed. We will see him in follow-up for colonoscopy because of his personal history of colon colon polyps and his need for colorectal cancer screening. We discussed risks and benefits of the procedure today. He is advised to stop Ozempic 1 week before the procedure along with aspirin and Jardiance 3 days before the procedure. 09/30/2024 Colon cancer screening (ICD-10 - Z12.11) We reviewed his medical problems in detail today. We discussed the problems of abdominal pain, gas, and diastases of the rectus muscles. We recommend that he monitor things for the time being regarding the diastases. For his gas, he can use OTC simethicone or other anti-gas agents as needed. We will see him in follow-up for colonoscopy because of his personal history of colon colon polyps and his need for colorectal cancer screening. We discussed risks and benefits of the procedure today. He is advised to stop Ozempic 1 week before the procedure along with aspirin and Jardiance 3 days before the procedure. Plan Of Treatment Future Test Test Name Order Date COLONOSCOPY 09/30/2024 Next Appt Details Provider Name:Elkin hewitt Jr, 11/13/2024 10:00:00 AM, [address] [place] [address], [id number], Insurance Providers Payer Name Payer Address Payer Phone Subscriber Number Group Number Insured Name Patient Relationship to Insured Coverage Start Date Coverage End Date MEDICARE OF [place] [address] [place] [phone] [id number] DEANNA HEATHER Self - patient is the insured MEDICAID OF [facility] [address] [place] [phone] [id number] HEATHER HUERTA Self - patient is the insured Medical (General) History Medical History History ICD Code Diabetes mellitus Hypertension Multiple orthopedic surgeries Umbilical herniorrhaphy Back pain Colonoscopy 05/06, tubular adenoma, 5-yea r follow-up Surgical History Surgery Date(Month/Year) 2022 repair of right shoulder 2021 right shoulder reverse surgery 2020 fixed right subscalpulous 2019 reverse left shoulder surgery 2016 cleaned left shoulder 2011 belly button hernia 2009 l 4 back fusion 2007 right shoulder surgery 2005 right rotator cuff surgery 2004 right ankle fusion 2001 left rotator cuff surger 2001 left tricep reattached 1997 shaved right collar bone 1994 left knee scoped for cartiledge ankle reconstruction 1992
--- OUTSIDE RECORDS SUMMARY | 2024-11-04 10:52 | XMS_ITS | Encounter Summary ---
Author Organization [facility] Address [address] [place] [phone] Phone Care Team Providers Care Laundry Tech Name Role Phone Del Bernstein MD Primary Care Provider [phone] Rojas López MD Unavailable [phone] Reason for Visit * Reason Comments Medication Refill Encounter Details Date Type Department Care Team (Late st Contact Info) Description 10/31/2024 Refill [facility] [address] [place], [place] [phone] Del Bernstein MD [address] [place], [place] [phone] [email or web address] Medication Refill Social History Tobacco Use Types Packs/Day Years Used Date Smoking Tobacco: Never Passive Smoke Exposure: Current Smokeless Tobacco: Current Chew Alcohol Use Standard Drinks/Week Comments Not Currently [...] high school, GED, job training, learning the Wolof language, technical skills, or developing parenting skills)? [...] Orientation Straight 07/26/2021 10 :19 AM EDT documented as of this encounter Progress Notes * Samantha Barillas MA - 11/02/2024 9:28 AM EDT Rx Care Gap Status - Instructions for Clinical Staff (prescriber discretion applies): > Mismatch review guide > N/a - No action needed Visit Info Last visit: 06/23/2024 Del Bernstein MD - Internal [facility] > Requested f/u: Return in about 4 months (around 10/24/2024) for Recheck. Upcoming visit: 11/10/2024 Del Bernstein MD - Internal Medicine [facility] ACTIONS TAKEN BY Samantha Barillas MA - Criteria met. ACEi / ARBs / Diuretic Rx Protocol (on HTN Registry) - lisinopril Criteria met; renew for up to 12 months. Visit in the past 14 months: Yes Clinical criteria: - BP within last 6 months: 116/64 on 06/23/2024 - BMP within past year: Yes - Cr, GFR and K are normal: Yes Lab Results Component Value Date SODIUM 135 04/09/2024 POTASSIUM 4.4 04/09/2024 CHLORIDE 98 04/09/2024 CO2 27 04/09/2024 BUN 15 04/09/2024 CREATININE 1.00 04/09/2024 EGFR 87 04/09/2024 documented in this encounter Plan of Treatment Upcoming Encounters Date Type Department Care Team (Late st Contact Info) Description 11/10/2024 10:45 AM EDT Office Visit [facility] [address] [place], [place] [phone] Del Bernstein MD [address] [place], [place] [phone] [email or web address] documented as of this encounter Visit Diagnoses Diagnosis Benign essential hypertension Essential hypertension, benign documented in this encounter Additional Health Concerns Assessment Noted Time PHQ-9 Depression Total Score: 7 09/09/19 24 1:40 PM EDT PHQ-2 Depression Total Score: 2 03/26/19 25 10:56 AM EST documented as of this encounter Care Teams Laundry Tech Relationship Specialty Start Date End Date Del Bernstein MD [address] [place] [address] [email or web address] PCP - General Internal Medicine 05/17/20 Rojas López MD [facility] Paulbrad Ramona [address] [id number] Orthopedic Surgery 09/09/23 documented as of this encounter Additional Source Comments The information contained in this document represents components of the legal health record. It is not the complete legal health record.[facility]
--- OUTSIDE RECORDS SUMMARY | 2024-11-04 10:52 | XMS_ITS | Clinical Summary ---
Author Organization [facility] Address [address] [facility] [place] [address] Care Team Providers Care Cube Machine Tender Name Role Phone No, Pcp MARK UP DESIGNER Primary Care Provider Unavailabl e Allergies Active Allergy Reactions Criticality Noted Date Comments Morphine Itching Low 08/04/2015 Sulfa (Sulfonamide Antibiotics) Hives High 07/19 Medications oxyCODONE (ROXICODONE) 10 MG tab Take 10 tablets by mouth 3 (three) times a day. 0 07/07/2015 Active lisinopril (PRINIVIL,ZESTR IL) 40 MG tablet Take 1 tablet (40 mg total) by mouth daily. 30 tablet 2 08/04/2015 Active Social History Tobacco Use Types Packs/Day Years Used Date Smoking Tobacco: Never Assessed Sex and Gender Information Value Date Recorded Sex Assigned at Not on file Legal Sex Male 10:36 AM EDT Gender Identity Not on file Sexual Orientation Not on file Last Filed Vital Signs Vital Sign Reading Time Taken Comments Blood Pressure 144/94 08/04/2015 2:28 PM EDT Pulse 85 08/04/2015 2:28 PM EDT Temperature 36.3 C (97.3 F) 08/04/2015 2:28 PM EDT Respiratory Rate 16 08/04/2015 2:28 PM EDT Oxygen Saturation 99% 08/04/2015 2:28 PM EDT Inhaled Oxygen Concentration - - Weight 118 kg (260 lb) 08/04/2015 2:28 PM EDT Height 175.3 cm (5' 9 ) 08/04/2015 2:28 PM EDT Body Mass Index 38.4 08/04/2015 2:28 PM EDT Plan of Treatment Health Maintenance Due Date Last Done Comments Colorectal Cancer: COLONOSCO PY Screening every 10 yrs (or Modifier) 1965 Depression: Screening Annual ly using PHQ-2/9 in Adults 18 yrs or above (or HM Modifier)([facility]) 1983 Hepatitis C Virus Infection in Adolescents and Adults: Screening (or Modifier) ([facility]) 1983 SDOH Screening Reminder: Zo desai for all adults ([facility]) 1983 Tobacco Smoking Cessation: i n Adults excluding Women: Behavioral and Pharmacotherapy Interventions ([facility]) 1983 DTaP/Tdap/Td Vaccines ([facility]) (1 - Tdap) 02/08/1984 Colorectal Cancer Screening 45 -75 Yrs (or HM Modifier ) 2010 Colorectal Cancer: FLEXIBLE SIGMOIDOSCOPY Screening every 5 yrs 2010 Colorectal Cancer: Fecal Imm unochemical Test (FIT) Annually [facility] 2010 Colorectal Cancer: High-sens itivity gFOBT Screening Annually [facility] 2010 Colorectal Cancer: Stool Col oguard Screening every 3 yrs 2010 Colorectal Cancer:CT Colonography Screening every 5 yr s 2010 Pneumococcal Vaccination Scr eening: Patients 50+ yrs of age ([facility]) (1 of 1 - PCV) 2015 Zoster/Shingles Vaccine Seri es Screening: Adults aged 18+ yrs (or HM Modifiers)([facility]) (1 of 2) 2015 Flu Vaccination: Yearly for ages 18mos through 64 years (or Modifier)([facility]) 09/18/2024 COVID-19 Vaccine Screening: Initial Series and Booster Status ([facility]) ( season) 2024 Medical Devices Not on file Care Teams Cube Machine Tender Relationship Specialty Start Date End Date No, Pcp, MARK UP DESIGNER N/A Do not use PCP - General 08/04/15
--- OUTSIDE RECORDS SUMMARY | 2024-11-04 10:52 | XMS_ITS | Clinical Summary ---
Author Organization [facility] Address [address] [place] [address] Care Team Providers Care Lockstitch Topstitcher Name Role Phone Unavailable Primary Care Provider Unavailabl e Social History Tobacco Use Types Packs/Day Years Used Date Smoking Tobacco: Never Assessed Sex and Gender Information Value Date Recorded Sex Assigned at Not on file Legal Sex Male 3:58 AM EDT Gender Identity Not on file Sexual Orientation Not on file Plan of Treatment Health Maintenance Due Date Last Done Comments Hepatitis C Screening 1965 DTaP/Tdap/Td (1 - Tdap) 1983 Hep B (1 of 3 - 19+ 3-dose series) 02/08/1984 Pneumococcal 50+ years (1 of 1 - PCV) 2015 Zoster (Shingrix) (1 of 2) 2015 COVID-19 Vaccine (1 - 2023-2 5 season) 2024 Influenza (#1) 2024 HPV Vaccine (No Doses Required) Completed Hep A Aged Out No longer eligi ble based on patient's age to complete this topic Hib Aged Out No longer eligi ble based on patient's age to complete this topic Meningococcal ACWY Aged Out No longer eligible based on patient's age to complete this topic
[2024-11-13 08:34] VITALS: BP 121/78; PULSE 77; RESP 20; TEMP 36.9; O2SAT 95; BMI 33.9
[2024-11-13 08:40] LABS: Glucose, Whole Blood 139 mg/dL (60-115)
[2024-11-13] MEDS: Lactated Ringers 1,000 ML 100 ML IVCONT (08:51)
--- NOTE | 2024-11-13 10:06 | HO.ANESPROP2 ---
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 Hx of umbilical hernia repair History of lumbar fusion Hx of repair of right rotator cuff Hx of repair of left rotator cuff History of surgery on arm History of orthopedic surgery History of arthroscopy of left knee History of ankle surgery Social History Social History (Updated 10/12/24 @ 14:14 by Batool Craig RN) Patient Tobacco Use Status: Tobacco use Unknown Tobacco use type: Cigarette and Smokeless Tobacco Cigarettes Per Day: 10 Frequency of e-Cigarette/Vaping Use: chewing tobacco Substance Use Frequency: Daily Have you been hit, kicked, punched, or otherwise hurt by someone within the past year? If so, by whom?: No Are you DNR?: No Advance Directives: No Advance Directives Information Provided: Yes Meds Allergies Allergy/AdvReac Type Severity Reaction Status Date / Time Sulfa (Sulfonamide Allergy Severe Rash Verified 11/13/24 09:01 Antibiotics) Home Medications ?Medication ?Instructions ?Recorded ?Confirmed ?Last Taken ?Type aspirin 81 mg tablet,delayed 81 mg PO DAILY 10/12/24 10/12/24 11/05/24 History release empagliflozin 25 mg tablet 25 mg PO DAILY 10/12/24 10/12/24 11/10/24 History (Jardiance) lisinopril 10 mg tablet 10 mg PO DAILY 10/12/24 10/12/24 11/12/24 History oxycodone 10 mg tablet 10 mg PO QID 10/12/24 10/12/24 11/12/24 History semaglutide 1 mg/dose (4 mg/3 mL) 1 mg subcut QWEEK 10/12/24 10/12/24 11/06/24 History subcutaneous pen injector (Ozempic) Exam Height,Weight and Vital Signs: Height 5 ft 8.5 in Weight 108.862 kg Assessment and Plan Assessment Anesthesia Assessment: Chart Reviewed Documented by User: Hanny Roldan DO 11/13/24 10:07 HPI - Anesthesia Eval Anesthesia Pre-Procedure Meds Is the patient on any of the following meds?: GLP1/DPP4 and SGLT2 Inhib PMFSH Past Medical History Medical History (Updated 10/12/24 @ 14:12 by Batool Craig RN) Back pain Diabetes HTN (hypertension) Family History Family history of problems with anesthesia: No Surgical History Surgical History (Updated 10/12/24 @ 14:06 by Batool Craig RN) H/O colonoscopy Hx of shoulder surgery 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 Hx of umbilical hernia repair History of lumbar fusion Hx of repair of right rotator cuff Hx of repair of left rotator cuff History of surgery on arm History of orthopedic surgery History of arthroscopy of left knee History of ankle surgery History of Problems with Anesthesia: No Social History Social History (Updated 10/12/24 @ 14:14 by Batool Craig RN) Patient Tobacco Use Status: Tobacco use Unknown Tobacco use type: Cigarette and Smokeless Tobacco Cigarettes Per Day: 10 Frequency of e-Cigarette/Vaping Use: chewing tobacco Substance Use Frequency: Daily Have you been hit, kicked, punched, or otherwise hurt by someone within the past year? If so, by whom?: No Are you DNR?: No Advance Directives: No Advance Directives Information Provided: Yes Meds Allergies Allergy/AdvReac Type Severity Reaction Status Date / Time Sulfa (Sulfonamide Allergy Severe Rash Verified 11/13/24 09:01 Antibiotics) Home Medications ?Medication ?Instructions ?Recorded ?Confirmed ?Last Taken ?Type aspirin 81 mg tablet,delayed 81 mg PO DAILY 10/12/24 10/12/24 11/05/24 History release empagliflozin 25 mg tablet 25 mg PO DAILY 10/12/24 10/12/24 11/10/24 History (Jardiance) lisinopril 10 mg tablet 10 mg PO DAILY 10/12/24 10/12/24 11/12/24 History oxycodone 10 mg tablet 10 mg PO QID 10/12/24 10/12/24 11/12/24 History semaglutide 1 mg/dose (4 mg/3 mL) 1 mg subcut QWEEK 10/12/24 10/12/24 11/06/24 History subcutaneous pen injector (Ozempic) Exam Exam Date and Time: 11/13/24929 Height,Weight and Vital Signs: Height 5 ft 8.5 in Weight 108.862 kg Vital Signs Temperature 98.5 F 11/13/24 08:34 Pulse Rate 77 11/13/24 08:34 Respiratory Rate 20 11/13/24 08:34 Blood Pressure 121/78 11/13/24 08:34 Pulse Oximetry 95 11/13/24 08:34 Oxygen Delivery Method Room Air 11/13/24 08:34 Temperature 98.5 F 11/13/24 08:34 Pulse Rate 77 11/13/24 08:34 Respiratory Rate 20 11/13/24 08:34 Blood Pressure 121/78 11/13/24 08:34 Pulse Oximetry 95 11/13/24 08:34 Oxygen Delivery Method Room Air 11/13/24 08:34 Airway Mallampati Class: II TM Dist: <=3cm Neck ROM: Full Loose/Missing/Broken Teeth: Yes (several chipped teeth) Heart: S1S2 Lungs: CTAB Assessment and Plan Assessment Anesthesia Assessment: Anesthesia Plan Discussed and Chart Reviewed Final Anesthetic Review Family History of Problems with Anesthesia: No History of Problems with Anesthesia: No NPO: Yes ASA Class: II Final Preanesthetic Review: No Changes in Pt Med Stat, Meds/Allgs Chart Reviewed, Consent Obtained/Reviewed and Anes Risks/Benef Reviewed Patient Risk: Low Procedure Risk: Low Anesthetic Plan Anesthetic Plan: MAC: and Agree w/ Assess. and Plan Disposition: Standard PACU
--- NOTE | 2024-11-13 10:29 | MHC.SHP ---
Pre-Procedural Eval Section A - 24 Hr Update-Section A only Date of Service: 11/13/24 Section B - Complete if H&P > 30 days Chief Complaint: screening Details of Present Illness: see H&p no changes Relevant Family History (Specify if Yes): No Relevant Social History: None Present Medications: see Short Stay Collaborative assessment Medical History: No relevant PMH History of Previous Operations: No relevant previous surgery Allergies: Allergies Allergy/AdvReac Type Severity Reaction Status Date / Time Sulfa (Sulfonamide Allergy Severe Rash Verified 11/13/24 09:01 Antibiotics) Review of Systems Sugical H&P ROS: Negative: Constitution, Cardiovascular, Respiratory, Neurological, Psychiatric, Hem-Onc, Allergic/Immunologic, Gastrointestinal, Genitourinary, Musculoskeletal, Integumentary, Endocrine and Eyes/Ears/Nose/Throat Exam Surgical H&P Exam: Normal: HEENT, Normal: Heart, Normal: Lungs, Normal: Extremities, Normal: Abdomen, Normal: Skin and Normal: Neurological Plan Diagnosis/Plan: Unchanged I have reviewed the history and physical and performed a pertinent physical examination on my patient. No changes have occurred unless specified. Time Spent With Patient Time: Total time managing care of this patient today ____ minutes.
[2024-11-13 11:03] VITALS: BP 97/63; PULSE 75; RESP 19; TEMP 36.4; O2SAT 95
[2024-11-13 11:18] VITALS: BP 106/70; PULSE 75; RESP 19; TEMP 36.4; O2SAT 95
--- NOTE | 2024-11-19 10:05 | OP_ITS ---
DATE OF SERVICE: 11/13/2024 SURGEON: Elkin Zarate MD INDICATIONS: Personal history of colon polyps and colon cancer screening. PREOPERATIVE DIAGNOSIS: POSTOPERATIVE DIAGNOSIS: PROCEDURE PERFORMED: Colonoscopy. ESTIMATED BLOOD LOSS: COMPLICATIONS: ANESTHESIA: Medications, monitored anesthesia care. ASSISTANTS: SPECIMENS: DESCRIPTION OF PROCEDURE: A history and physical performed. The risks and benefits of procedure explained to the patient. Informed consent was obtained. The patient was placed in the left lateral decubitus position. A digital rectal exam was performed and was found to be normal. The Olympus pediatric video colonoscope was introduced into the rectum and advanced to the cecum. The cecum was identified by transillumination, palpation, and identification of the ileocecal valve. Examination was performed. The scope was removed. He tolerated the procedure well and was returned to recovery area in stable condition. FINDINGS: The visualized colonic mucosa was normal. The terminal ileum was briefly glimpsed and appeared normal. No polyps were identified. Retroflexed examination showed some small internal hemorrhoids. IMPRESSION: Normal colonoscopy. RECOMMENDATION: 1. Follow up as needed. 2. Repeat colonoscopy is recommended in 5 years for high risk individuals. MD PROSPER Munguia/KELLI / [id number] MTDD
== END 2024-11-13 13:05 | disposition home or self-care (01) ==
PROVIDERS: PCP Internal Medicine; Visit Provider Internal Medicine Gastroenterology
PROC: 0DJD8ZZ Inspection of Lower Intestinal Tract, Via Natural or Artificial Opening Endoscopic (ICD-10-PCS; CPT 45378; principal; 2024-11-13 10:00)
DX: Z12.11 Encounter for screening for malignant neoplasm of colon (principal); Z86.0101 Personal history of adenomatous and serrated colon polyps; K64.8 Other hemorrhoids; M62.08 Separation of muscle (nontraumatic), other site; R14.3 Flatulence; E11.9 Type 2 diabetes mellitus without complications; I10 Essential (primary) hypertension; Z79.899 Other long term (current) drug therapy
CPT/HCPCS: G0105; 82947; J2003; J2704